=== PATIENT | female | born 1950 | race American Indian/Alaskan Native ===

== ENCOUNTER 2016-08-01 10:00 | Outpatient (CLI) | payer MEDICARE ==
--- NOTE | 2016-08-01 12:47 | Ultrasound Report ---
ULTRASOUND RENAL INDICATION: Chronic kidney disease. COMPARISON: None similar at this institution. FINDINGS: Renal sonography in part limited due to bowel gas, though suggests mild increased renal cortical echogenicity. Grossly preserved contours. No hydronephrosis. RIGHT KIDNEY measures 8 x 3.3 x 3.8 cm with cortical thickness of 1.3 cm. LEFT KIDNEY estimated at 9.1 x 4 x 4.1 cm with cortical thickness of 1.1 cm. URINARY BLADDER suboptimally distended and assessed. CONCLUSION: Slight right renal atrophy and underlying medical renal disease suspected sonographically without acute renal abnormality. Please correlate. Thank you for the opportunity to participate in this patient's care.
== END 2016-08-01 10:01 | disposition home or self-care (01) ==
LOC: US 10:00
PROVIDERS: ATTEND Specialist
DX: N18.3 Chronic kidney disease, stage 3 (moderate) (principal); N26.1 Atrophy of kidney (terminal); N32.89 Other specified disorders of bladder
CPT/HCPCS: 76770